=== PATIENT | female | born 1960 | race Caucasian/White ===

== ENCOUNTER 2016-10-27 07:12 | Observation (INO) | payer MEDICAID, OTHER ==
[2016-10-27 07:36] VITALS: BMI 27.1
[2016-10-27 07:54] LABS: ALL NEG? NO
[2016-10-27 08:00] LABS: AUTOMATED BASOPHIL 1.4 % (0-2); AUTOMATED EOSINOPHIL 0.8 % (0-5); AUTOMATED LYMPH 23.5 % (17-44); AUTOMATED MONOCYTE 10.5 % (3-10); AUTOMATED NEUTROPHIL 63.8 % (45-76); MPV 7.6 fL (7.4-10.4)
[2016-10-27 08:03] LABS: URINE OCCULT BLOOD NEG (NEG/TRACE)
[2016-10-27 08:04] LABS: LEUKOCYTES/URINE TRACE (NEGATIVE); NITRITE/URINE NEG (NEGATIVE)
[2016-10-27 08:08] LABS: AMORPHOUS OCC
[2016-10-27 08:17] LABS: BLOOD UREA NITROGEN 15 MG/DL (7-17); CALCIUM 9.2 MG/DL (8.4-10.2); CALCULATED OSMOLALITY 274 MOs/Kg (270-290); CHLORIDE 103 mEq/L (98-107); ETOH-MGDL < 10 mg/dL; GLUCOSE 133 MG/DL (70-99); SODIUM LEVEL 141 mEq/L (137-146); TOTAL PROTEIN 7.5 G/DL (6.3-8.2)
[2016-10-27 08:26] LABS: MDMA* NEG (NEGATIVE); METHAMPHETAMINES NEG (NEGATIVE); OXYCODONE *POSITIVE* (NEGATIVE)
[2016-10-27] MEDS ORDERED: DIAZEPAM 5 MG TAB PO ONE (09:30)
--- NOTE | 2016-10-27 09:57 | EDPRACDOC ---
- General Information Chief Complaint: Psychiatric Illness Stated Complaint: PSYCH EVAL Time Seen by Provider: 10/27/16 08:51 Information Source: Patient Mode of Arrival: Car Home Medications: Home Medications Sumatriptan Succinate [Imitrex] 100 mg PO . DIRECTED PRN 03/07/14 Topiramate [Topamax] 50 mg PO BID 03/07/14 Albuterol Sulfate [Proair Respiclick] 1 - 2 puff INH Q4-6H PRN 10/27/16 Alprazolam [Xanax] 0.5 mg PO QID PRN 10/27/16 Aripiprazole [Abilify] 12.5 mg PO DAILY 10/27/16 Cyclobenzaprine HCl [Flexeril] 10 mg PO HS PRN 10/27/16 Gabapentin [Neurontin] 800 mg PO TID PRN 10/27/16 Levothyroxine [Synthroid, Levoxyl] 25 mcg PO DAILY 10/27/16 Omeprazole 40 mg PO BID 10/27/16 Oxycodone HCl [Oxycodone Immediate Release] 20 mg PO .5XDAILY 10/27/16 Pramipexole [Mirapex] 0.5 mg PO HS 10/27/16 Pravastatin [Pravachol] 80 mg PO HS 10/27/16 Secukinumab [Cosentyx Pen] 250 mg SQ .MONTHLY 10/27/16 Trazodone HCl 150 - 300 mg PO HS PRN 10/27/16 Allergies/Adverse Reactions: Allergies Allergy/AdvReac Type Severity Reaction Status Date / Time erythromycin base Allergy Nausea/Vomi Verified 10/27/16 07:30 [Erythromycin Base] ting meperidine HCl [From Demerol] Allergy Anxiety Verified 10/27/16 07:30 Penicillins Allergy Edema-Gener Verified 10/27/16 07:30 alized Sulfa (Sulfonamide Allergy Hives* Verified 10/27/16 07:30 Antibiotics) - History of Present Illness Onset: 1-2 weeks Reason for Seeking Treatment: Self-referral Presents With: Reports: Anxiety, Unclear Thinking, Bizarre Behavior, Suicidal Ideation (FEELS LIKE SHE IS NOT SAFE AT HOME AND THAT SHE MIGHT HURT HERSELF), Terror Expresses: Reports: None Suicidal Attempt: Reports: N Stressors: Reports: Relationships, Homeless, Financial Relevant History: Reports: Depression, Bipolar Medication Compliance: No (SHE STOPPED TAKING HER MEDICATIONS APPROXIMATELY 3 WEEKS AGO WHEN SHE STARTED FEELING THE SYMPTOMS. THE TIMING APPEARS TO BE THAT HER SYMPTOMS STARTED 1ST AND THEN MEDICATION NONCOMPLIANCE FOLLOWED THAT.) Able to Care for Self: Yes Able to Control Self: Yes Associated Signs and Symptoms: Reports: None Other History: PATIENT IS ON CHRONIC XANAX, SHE STOPPED TAKING THIS 3 WEEKS AGO WITH SHE SAID IT WAS NOT HELPING HER SYMPTOMS. PATIENT IS ON CHRONIC OXYCODONE, SHE STILL HAS THIS CYST IS STILL TAKEN THIS FOR NORMAL LAST DOSE WAS LAST NIGHT. ED Past Medical History - History Reviewed Yes Nurses notes reviewed and agree except as marked - Patient Medical History Cardiac History: Reports: Hypercholesterolemia GI/ History: Reports: Gastroesophageal Reflux Psychological History: Reports: Depression Systemic History: Reports: Cancer (BREAST CANCER), Hypothyroidism, Other ( PSORIASIS) - Family Medical History Reports: No Significant History - Social Medical History Smoking Status: Heavy tobacco smoker (5 or more cigarettes/day or daily pipe/ cigar) ETOH: None Substance Abuse: None Lives In: Home EDM Review of Systems - Review of Systems ROS Negative Except as Marked: Yes All systems reviewed and were negative except as marked - Physical Exam Constitutional: Alert, Restless, Other (BILATERAL LOWER EXTREMITIES RESTLESS) Oriented to: Time, Person, Place Last recorded Vital Signs: Last Vital Signs Temp 97.8 F 10/27/16 07:30 Pulse 105 10/27/16 07:30 Resp 19 10/27/16 07:30 BP 158/61 10/27/16 07:30 Pulse Ox 93 10/27/16 07:30 Oxygen Pulse Oxygen Saturation 93 O2 Device Room Air Oxygen Flow Rate Fraction of Inspired Oxygen ( FIO2) - HEENT Head: Normal Eye Exam: Conjunctival Injection (LEFT EYE, ASSOCIATED WATERY X) Oropharynx: Normal. negative: Membranes Dry Nose: No Symptoms Reported Neck: Normal - Respiratory/Cardiovascular Respiratory: Normal - CTA Cardiovascular: Normal. negative: Tachycardia, Irregular, Diastolic murmur, Systolic murmur - GI Auscultation: Normal Palpation: Normal Tenderness: Non tender Johnson's Sign: Negative - Musculoskeletal Back: Normal Extremities: Normal - Integumentary Skin: Normal, Warm, Dry - Neurologic Memory Impaired: Normal Motor Function: Normal Mood Description: Anxious, Flat. negative: Appropriate, Uncooperative Thought: Coherent Perception: Normal - Results 10/27/16 07:52 10/27/16 07:52 WBC 8.5 xk/uL (3.8-10.8) 10/27/16 07:52 RBC 6.32 xM/uL (4.20-5.40) H 10/27/16 07:52 Hgb 17.3 g/dL (12.0-16.0) H 10/27/16 07:52 Hct 51.5 % (36-47) H 10/27/16 07:52 MCV 82 fL (81-99) 10/27/16 07:52 MCH 27.3 pg (27-32) 10/27/16 07:52 MCHC 33.5 g/dl (33-36) 10/27/16 07:52 RDW 14.2 % (11.5-14.5) 10/27/16 07:52 Plt Count 361 xk/uL (130-400) 10/27/16 07:52 MPV 7.6 fL (7.4-10.4) 10/27/16 07:52 Neut % (Auto) 63.8 % (45-76) 10/27/16 07:52 Lymph % (Auto) 23.5 % (17-44) 10/27/16 07:52 [place] % (Auto) 10.5 % (3-10) H 10/27/16 07:52 Eos % (Auto) 0.8 % (0-5) 10/27/16 07:52 Baso % (Auto) 1.4 % (0-2) 10/27/16 07:52 Absolute Neuts (auto) 5.36 xk/uL (1.7-8.2) 10/27/16 07:52 Absolute Lymphs (auto) 1.96 xk/uL (0.65-4.75) 10/27/16 07:52 Sodium 141 mEq/L (137-146) 10/27/16 07:52 Potassium 3.4 mEq/L (3.5-5.1) L 10/27/16 07:52 Chloride 103 mEq/L (98-107) 10/27/16 07:52 Carbon Dioxide 23 mMOL/L (22-33) 10/27/16 07:52 Anion Gap 18 mEq/L (8-16) H 10/27/16 07:52 BUN 15 MG/DL (7-17) 10/27/16 07:52 Creatinine 0.90 MG/DL (0.52-1.04) 10/27/16 07:52 Estimated GFR (MDRD) > 60 mL/min (>=60) 10/27/16 07:52 Glucose 133 MG/DL (70-99) H 10/27/16 07:52 Calculated Osmolality 274 MOs/Kg (270-290) 10/27/16 07:52 Calcium 9.2 MG/DL (8.4-10.2) 10/27/16 07:52 Total Bilirubin 0.7 MG/DL (0.2-1.3) 10/27/16 07:52 AST 25 IU/L (14-36) 10/27/16 07:52 ALT 14 IU/L (9-52) 10/27/16 07:52 Alkaline Phosphatase 82 IU/L (38-126) 10/27/16 07:52 Total Protein 7.5 G/DL (6.3-8.2) 10/27/16 07:52 Albumin 4.1 G/DL (3.5-5.0) 10/27/16 07:52 Urine Color Dark yellow 10/27/16 07:35 Urine Clarity Cldy 10/27/16 07:35 Urine pH 6.0 (5.0-8.0) 10/27/16 07:35 Ur Specific [place] 1.030 10/27/16 07:35 Urine Protein 1+ (NEG/TRACE) H 10/27/16 07:35 Urine Glucose (UA) Trace (NEGATIVE) 10/27/16 07:35 Urine Ketones Neg (NEGATIVE) 10/27/16 07:35 Urine Occult Blood Neg (NEG/TRACE) 10/27/16 07:35 Urine Nitrite Neg (NEGATIVE) 10/27/16 07:35 Urine Bilirubin Neg (NEGATIVE) 10/27/16 07:35 Urine Urobilinogen 2 MG/DL (0-1) H 10/27/16 07:35 Ur Leukocyte Esterase Trace (NEGATIVE) 10/27/16 07:35 Urine RBC 2-5 (0-5) 10/27/16 07:35 Urine WBC 5-10 (0-5) H 10/27/16 07:35 Ur Epithelial Cells 2+ 10/27/16 07:35 Amorphous Sediment Occ 10/27/16 07:35 Urine Bacteria 1+ (NEG/FEW) H 10/27/16 07:35 Urine Mucus Large (NEG/OCC) 10/27/16 07:35 Urine Opiates Screen Neg (NEGATIVE) 10/27/16 07:35 Ur Oxycodone Screen *positive* (NEGATIVE) H 10/27/16 07:35 Urine Methadone Screen Neg (NEGATIVE) 10/27/16 07:35 Ur Barbiturates Screen Neg (NEGATIVE) 10/27/16 07:35 Ur Tricyclics Screen Neg (NEGATIVE) 10/27/16 07:35 Ur Phencyclidine Scrn Neg (NEGATIVE) 10/27/16 07:35 Ur Amphetamines Screen Neg (NEGATIVE) 10/27/16 07:35 U Methamphetamines Scrn Neg (NEGATIVE) 10/27/16 07:35 Urine MDMA Screen Neg (NEGATIVE) 10/27/16 07:35 U Benzodiazepines Scrn Neg (NEGATIVE) 10/27/16 07:35 Urine Cocaine Screen Neg (NEGATIVE) 10/27/16 07:35 Ur THC Screen Neg (NEGATIVE) 10/27/16 07:35 Plasma/Serum Ethyl Alc % (<0.01) 10/27/16 07:52 Lab Results 10/27/16 10/27/16 10/27/16 07:52 07:52 07:35 WBC 8.5 RBC 6.32 H Hgb 17.3 H Hct 51.5 H MCV 82 MCH 27.3 MCHC 33.5 RDW 14.2 Plt Count 361 MPV 7.6 Neut % (Auto) 63.8 Lymph % (Auto) 23.5 [place] % (Auto) 10.5 H Eos % (Auto) 0.8 Baso % (Auto) 1.4 Absolute Neuts (auto) 5.36 Absolute Lymphs (auto) 1.96 Sodium 141 Potassium 3.4 L Chloride 103 Carbon Dioxide 23 Anion Gap 18 H BUN 15 Creatinine 0.90 Estimated GFR (MDRD) > 60 Glucose 133 H Calculated Osmolality 274 Calcium 9.2 Total Bilirubin 0.7 AST 25 ALT 14 Alkaline Phosphatase 82 Total Protein 7.5 Albumin 4.1 Urine Color Dark yellow Urine Clarity Cldy Urine pH 6.0 Ur Specific [place] 1.030 Urine Protein 1+ H Urine Glucose (UA) Trace Urine Ketones Neg Urine Occult Blood Neg Urine Nitrite Neg Urine Bilirubin Neg Urine Urobilinogen 2 H Ur Leukocyte Esterase Trace Urine RBC 2-5 Urine WBC 5-10 H Ur Epithelial Cells 2+ Amorphous Sediment Occ Urine Bacteria 1+ H Urine Mucus Large Urine Opiates Screen Ur Oxycodone Screen Urine Methadone Screen Ur Barbiturates Screen Ur Tricyclics Screen Ur Phencyclidine Scrn Ur Amphetamines Screen U Methamphetamines Scrn Urine MDMA Screen U Benzodiazepines Scrn Urine Cocaine Screen Ur THC Screen Plasma/Serum Ethyl Alc 10/27/16 07:35 WBC RBC Hgb Hct MCV MCH MCHC RDW Plt Count MPV Neut % (Auto) Lymph % (Auto) [place] % (Auto) Eos % (Auto) Baso % (Auto) Absolute Neuts (auto) Absolute Lymphs (auto) Sodium Potassium Chloride Carbon Dioxide Anion Gap BUN Creatinine Estimated GFR (MDRD) Glucose Calculated Osmolality Calcium Total Bilirubin AST ALT Alkaline Phosphatase Total Protein Albumin Urine Color Urine Clarity Urine pH Ur Specific [place] Urine Protein Urine Glucose (UA) Urine Ketones Urine Occult Blood Urine Nitrite Urine Bilirubin Urine Urobilinogen Ur Leukocyte Esterase Urine RBC Urine WBC Ur Epithelial Cells Amorphous Sediment Urine Bacteria Urine Mucus Urine Opiates Screen Neg Ur Oxycodone Screen *positive* H Urine Methadone Screen Neg Ur Barbiturates Screen Neg Ur Tricyclics Screen Neg Ur Phencyclidine Scrn Neg Ur Amphetamines Screen Neg U Methamphetamines Scrn Neg Urine MDMA Screen Neg U Benzodiazepines Scrn Neg Urine Cocaine Screen Neg Ur THC Screen Neg Plasma/Serum Ethyl Alc - EKG EKG #1 EKG Time: 10:17 -: Yes EKG interpreted by me Rate: bpm: 92 [place]: Normal Rhythm: NSR Block: None Hypertrophy: None ST: Normal - Additional Information Additional Information: SYMPTOMS MOST LIKELY REPRESENT DECOMPENSATED MIKE, WITH UNCLEAR THE PROCESS IS AND A FEAR FOR DETERIORATING AT HOME. PLAN TO HOLD PT FOR SERIAL EVALUATIONS. THE NEED FOR INPAT CARE IS NOT CLEAR AT THIS TIME. - Departure Disposition: Admit to Condition: Stable Final Diagnosis: Severe major depression with psychotic features, [place] eye disease of left eye Referrals: None,No Provider [Primary Care Provider] - One Week
[2016-10-27] MEDS ORDERED: GABAPENTIN 800 MG TAB PO PRN (10:14)
[2016-10-27] MEDS ORDERED: ALPRAZOLAM 0.5 MG TAB PO PRN (10:14)
[2016-10-27] MEDS ORDERED: ARIPIPRAZOLE 10 MG TAB PO SCH (10:15)
[2016-10-27] MEDS ORDERED: PANTOPRAZOLE 40 MG TAB PO SCH (10:15)
[2016-10-27] MEDS ORDERED: GENTAMICIN 0.3% OPHTH OINT 3.5 GM TUBE OS SCH ×2 (11:00→14:00)
[2016-10-27] MEDS ORDERED: LEVOTHYROXINE 25 MCG (0.025 MG) TAB PO SCH (11:00)
[2016-10-27] MEDS ORDERED: OXYCODONE HCL 5 MG TABLET PO SCH (12:00)
[2016-10-27 15:49] VITALS: BP 125/80; PULSE 99; TEMP 97.7
[2016-10-27] MEDS ORDERED: TOPIRAMATE 25 MG TABLET PO SCH (21:00)
[2016-10-27] MEDS ORDERED: TRAZODONE 50 MG TAB PO PRN (21:00)
== END 2016-10-27 15:50 | disposition home or self-care (01) ==
LOC: ED 07:12 → EDINP 10:17
PROVIDERS: ADMIT Emergency Medicine; ATTEND Emergency Medicine
DX: F32.3 Major depressive disorder, single episode, severe with psychotic features (principal); H10.022 Other mucopurulent conjunctivitis, left eye; E78.00 Pure hypercholesterolemia, unspecified; K21.9 Gastro-esophageal reflux disease without esophagitis; E03.9 Hypothyroidism, unspecified; F17.200 Nicotine dependence, unspecified, uncomplicated; Z79.899 Other long term (current) drug therapy
CPT/HCPCS: 36415; 80053; 80307; 80329; 81001; 84443; 85025; 86592; 93005; 99284; G0378; J3490